=== PATIENT | female | born 1960 | race Caucasian/White ===

== ENCOUNTER 2017-07-04 18:19 | Emergency (ER) | payer BC ==
[~2017-07-04 18:19] MED LIST: AVELOX400 MG OR; AVELOX400 MG PO; CHERATUSSIN OR; CRESTOR10 MG; ENJUVIA1.25 MG; FLUOXETINE20 M2; PREDNISONE10 MG PO; STERAPRED DS10 MG; ZITHROMAX500 MG
== END 2017-07-04 18:35 | disposition left against medical advice (07) | DRG 951 ==
LOC: ED 18:19 → LWOBS 18:35
DX: Z91.19 Patient's noncompliance with other medical treatment and regimen (principal)

== ENCOUNTER 2017-07-17 08:55 | Inpatient (IN) | payer BC ==
[~2017-07-17] VITALS: Ht 157.5 cm; Wt 77.6 kg
--- NOTE | 2017-07-17 09:10 | NUR ---
PATIENT AMBULATED TO ROOM WITH STEADY GAIT AND PHYSICIAN AT BEDSIDE FOR EVAL
--- NOTE | 2017-07-17 09:28 | NUR ---
PT TO CT AFTER 22G STARTED, LAB WORK OBTAINED AND MEDICATED FOR PAIN, SPOUSE REMAINS IN ROOM
[2017-07-17 09:30] LABS: HEMATOCRIT 41.5 % (37.0-47.0); IMMATURE GRANULOCYTES 0.3 % (0.0-1.0); MEAN CELL VOLUME 87.4 fL CALC (80.0-100.0); MEAN CORPUSCULAR HGB 29.5 pG CALC (26.0-32.0); MEAN CORPUSCULAR HGB CONC 33.7 g/L CALC (32.0-36.0); NEUT# 12.8 thou/uL (2.00-7.15); RED BLOOD COUNT 4.75 mill/uL (4.20-5.60); RED CELL DISTRI WIDTH 12.2 % (11.5-15.5)
--- NOTE | 2017-07-17 10:01 | NUR ---
PT STATES MODERATE RELIEF WITH TORADOL, RESTING ON STRETCHER, SPOUSE REMAINS AT BEDSIDE
[2017-07-17 10:16] LABS: ALBUMIN 4.1 g/dL (3.2-5.0); ALKALINE PHOSPHATASE 106 u/l (38-126); AMYLASE 76 u/l (30-110); ANION GAP 15 (6-22 (CALC)); BILIRUBIN, TOTAL 0.6 mg/dL (0.0-1.4); BUN 11 mg/dL (7-17); BUN/CREATININE RATIO 11 (12-20 (CALC)); CALCIUM 9.3 mg/dL (8.4-10.2); CARBON DIOXIDE 28 mmol/l (22-30); CHLORIDE 100 mmol/l (95-108); GFR 58 ML/MIN (>=60 (CALC)); GFR FOR AFR.AMER. > 60 ML/MIN (>=60 (CALC)); GLUCOSE 131 mg/dL (65-105); LIPASE 56 u/l (23-300); POTASSIUM 4.1 mmol/l (3.5-5.1); SGOT/AST 28 u/l (14-36); SGPT/ALT 40 u/l (9-52); SODIUM 139 mmol/l (137-146); TOTAL PROTEIN 7.3 g/dL (6.3-8.2)
--- NOTE | 2017-07-17 10:41 | NUR ---
PT MABULATED TO BATHROOM CONTINENT OF URINE, SEPCIMEN OBTAINED. AMBULATED BACK TO ROOMW ITH STEADY GAIT, AWARE OF PLAMNED ADMISSION.
[2017-07-17 11:05] LABS: URINE BILIRUBIN - DIPSTICK NEGATIVE (NEGATIVE); URINE BLOOD DIPSTICK MODERATE (NEGATIVE); URINE COLOR YELLOW; URINE GLUCOSE - DIPSTICK NEGATIVE (NEGATIVE); URINE KETONE NEGATIVE (NEGATIVE); URINE LEUK ESTERASE NEGATIVE (NEGATIVE); URINE NITRITE - DIPSTICK NEGATIVE (Negative); URINE PROTEIN - DIPSTICK NEGATIVE (NEG-TRACE); URINE SPECIFIC GRAVITY <=1.005; URINE UROBILINOGEN - DIPSTICK 0.2 E.U./dL (0.2)
[2017-07-17 11:06] LABS: URINE CLARITY SL CLOUDY; URINE EPITHELIAL CELLS FEW EPI/hpf (0-FEW)
--- NOTE | 2017-07-17 12:08 | NUR ---
REPORT CALLED TO LORI WHITLOCK ON MED SURG EARLIER ROOM 262 ASSIGNED PT AWARE OF PLANNED ADMISSION, MEDICATED WITH MORPHINE EARLIER WITH GOOD RELIEF SPOUSE REMAINS AT BEDSIDE, BP MUCH IMPROVED 114/70
--- NOTE | 2017-07-17 12:15 | NUR ---
PT ADMITTED TO MED [facility]G ROOM 262 [facility] LORI AND BARRY SINGH AT BEDSIDE
[2017-07-17 12:16] VITALS: BP 140/91
--- NOTE | 2017-07-17 12:16 | NUR ---
PT ARRIVED TO ROOM AT 1216 WITH EMILI RENTERIA. PT ORIENTED TO ROOM AND CALL LIGHT SYSTEM. PT HAS NO COMPLAINTS OF PAIN AT THIS TIME. IV PATENT, NO REDNESS OR INFLAMATION. SAFETY PRECAUTIONS IN PLACE. CALL LIGHT WITHIN REACH.
[2017-07-17 15:23] VITALS: BP 119/72
[2017-07-17 19:00] VITALS: BP 145/85
--- NOTE | 2017-07-17 19:00 | NUR ---
RECEIVED CHANGE OF SHIFT REPORT FRON KAMLESH NOLEN. PATIENT LYING IN BED AND APPEARS NOT TO BE IN ANY APPARENT ACUTE DISTRESS OR DISCOMFORT. WILL CONTINUE TO MONITOR.
--- NOTE | 2017-07-17 19:35 | NUR ---
REPORT GIVEN TO EMILI ROWLEY. NO CHANGE IN PT CONDITION. CALL LIGHT WITHIN REACH.
[2017-07-18] VITALS (7 sets, daily range): BP systolic 124–162; BP diastolic 77–93
--- NOTE | 2017-07-18 | NUR ---
PATIENT RESTING QUIETLY WITH EYES CLOSED AND APPEARS TO BE ASLEEP. RESPIRATION EVEN AND UNLABORED. NO APPARENT ACUTE DISTRESS NOTED.
--- NOTE | 2017-07-18 04:00 | NUR ---
PATIENT'S AWAKE AND REQUESTED PAIN MEDICATION. NO APPARENT ACUTE CHANGES NOTED IN PATIENT'S CONDITION.
[2017-07-18 06:08] LABS: HEMATOCRIT 38.2 % (37.0-47.0); HEMOGLOBIN 12.5 g/dl (12.0-16.0); IMMATURE GRANULOCYTES 0.2 % (0.0-1.0); MEAN CELL VOLUME 90.3 fL CALC (80.0-100.0); MEAN CORPUSCULAR HGB 29.6 pG CALC (26.0-32.0); MEAN CORPUSCULAR HGB CONC 32.7 g/L CALC (32.0-36.0); NEUT# 4.93 thou/uL (2.00-7.15); RED BLOOD COUNT 4.23 mill/uL (4.20-5.60); RED CELL DISTRI WIDTH 12.3 % (11.5-15.5)
[2017-07-18 06:28] LABS: CALCIUM 9.2 mg/dL (8.4-10.2); CREATININE 1.2 mg/dL (0.5-1.0); POTASSIUM 4.1 mmol/l (3.5-5.1)
--- NOTE | 2017-07-18 07:00 | NUR ---
RECIEVED REPORT FROM EMILI ROWLEY. PT AWAKE ON ENTRY, WATCHING TV. IV SITE PATENT, NO REDNESS OR INFLAMATION. SAFETY PRECAUTIONS REINFORCED. WILL CONTINUE TO MONITOR. CALL LIGHT WITHIN REACH.
--- NOTE | 2017-07-18 14:41 | NUR ---
PT OFF FLOOR AT 1441 WITH OR NURSE JOSE MANUEL.
--- NOTE | 2017-07-18 16:50 | NUR ---
PT BACK TO ROOM FROM OR WITH OR NURSE BRENDON. PT AMBULATED TO BED. NO COMPLAINTS OF PAIN FROM PT. PT REORIENTED TO ROOM. CALL LIGHT WITHIN REACH. WILL CONTINUE TO MONITOR.
--- NOTE | 2017-07-18 19:00 | NUR ---
RECEIVED CHANGE OF SHIFT REPORT FROM KAMLESH NOLEN. PATIENT LYING IN BED WITH VISITORS AT BEDSIDE. PT REPORTS UNRELIEVED DISCOMFORT AT THIS TIME. NO APPARENT DISTRESS NOTED. WILL CONTINUE TO MONITOR.
--- NOTE | 2017-07-18 19:00 | NUR ---
REPORT GIVEN TO EMILI ROWLEY. NO ACUTE CHANGES IN PT CONDITION. CALL LIGHT WITHIN REACH.
--- NOTE | 2017-07-18 19:45 | NUR ---
MEDICATED PATIENT WITH 1 MG DILAUDID IV FOR PAIN OF 5 ON 0-10 PAIN SCALE. WILL CONTINUE TO MONITOR.
--- NOTE | 2017-07-19 | NUR ---
PATIENT RESTING QUIETLY AT THIS TIME.
[2017-07-19 04:32] VITALS: BP 194/86
--- NOTE | 2017-07-19 04:41 | NUR ---
NOTIFY DR AGRAWAL OF CHANGE IN PATIENTS CONDITION. BP 194/86. ORDERS RECEIVED.
--- NOTE | 2017-07-19 05:00 | NUR ---
NO APPARENT ACUTE CHANGES NOTED IN PATIENT'S CONDITION.
[2017-07-19 06:39] LABS: HEMATOCRIT 35.9 % (37.0-47.0); HEMOGLOBIN 11.8 g/dl (12.0-16.0); IMMATURE GRANULOCYTES 0.2 % (0.0-1.0); MEAN CELL VOLUME 89.3 fL CALC (80.0-100.0); MEAN CORPUSCULAR HGB 29.4 pG CALC (26.0-32.0); MEAN CORPUSCULAR HGB CONC 32.9 g/L CALC (32.0-36.0); NEUT# 2.93 thou/uL (2.00-7.15); RED BLOOD COUNT 4.02 mill/uL (4.20-5.60); RED CELL DISTRI WIDTH 12.2 % (11.5-15.5)
[2017-07-19 06:58] LABS: BUN 9 mg/dL (7-17); BUN/CREATININE RATIO 11 (12-20 (CALC)); CALCIUM 9.1 mg/dL (8.4-10.2); CARBON DIOXIDE 29 mmol/l (22-30); CHLORIDE 105 mmol/l (95-108); CREATININE 0.8 mg/dL (0.5-1.0); GFR > 60 ML/MIN (>=60 (CALC)); GFR FOR AFR.AMER. > 60 ML/MIN (>=60 (CALC)); GLUCOSE 95 mg/dL (65-105); MAGNESIUM 1.5 mg/dL (1.6-2.3); SODIUM 141 mmol/l (137-146)
[2017-07-19 07:01] LABS: ANION GAP 11 (6-22 (CALC)); POTASSIUM 4.1 mmol/l (3.5-5.1)
--- NOTE | 2017-07-19 07:10 | NUR ---
REPORT RECEIVED FROM EMILI ROWLEY. PT SITTING UPRIGHT IN BED. DENIES PAIN AT THIS TIME. REPORTING OF CONCERNS ENCOURAGED. PLAN OF CARE DISCUSSED. CALL LIGHT REVIEWED AND IN REACH. PT STATES UNDERSTANDING.
[2017-07-19 07:23] VITALS: BP 129/80
[2017-07-19] MEDS ORDERED: BACTRIM DS1 TAB PO (09:15)
--- NOTE | 2017-07-19 11:17 | NUR ---
Discharge instructions given. Patient verbalizes understanding of same. Discharged in stable condition via Wheelchair to Home with family. All belongings sent with pt.
== END 2017-07-19 11:49 | disposition home or self-care (01) | DRG 690 ==
LOC: ED 08:55 → ED-I 10:05 → ED 10:50 → MS2 10:51
PROVIDERS: Emergency Medicine; Nurse Anesthetist, Certified Registered; Nurse Practitioner Family; ADMIT Internal Medicine; ATTEND Internal Medicine
PROC: 0T778DZ Dilation of Left Ureter with Intraluminal Device, Via Natural or Artificial Opening Endoscopic (ICD-10-PCS; principal; 2017-07-18)
PROC: BT1FZZZ Fluoroscopy of Left Kidney, Ureter and Bladder (ICD-10-PCS; 2017-07-18)
PROC: 3E0234Z Introduction of Serum, Toxoid and Vaccine into Muscle, Percutaneous Approach (ICD-10-PCS; 2017-07-19)
DX: N13.6 Pyonephrosis (principal); N17.9 Acute kidney failure, unspecified; N20.0 Calculus of kidney; I16.0 Hypertensive urgency; I10 Essential (primary) hypertension; F32.9 Major depressive disorder, single episode, unspecified; J44.9 Chronic obstructive pulmonary disease, unspecified; E83.42 Hypomagnesemia; Z23 Encounter for immunization; Z87.891 Personal history of nicotine dependence
CPT/HCPCS: Q9967

== ENCOUNTER 2017-08-07 11:41 | Day surgery (SDC) | payer BC ==
[~2017-08-07 11:41] MED LIST changes: +BACTRIM DS1 TAB PO
[2017-08-07] MEDS ORDERED: OMEPRAZOLE20 M1 PO (13:24)
[2017-08-07 14:47] VITALS: BP 145/74
[2017-08-07] MEDS ORDERED: PERCOCET 5/325M1 TAB PO (14:51)
[2017-08-07] MEDS ORDERED: TAMSULOSIN0.4 MG PO (14:51)
== END 2017-08-07 15:15 | disposition home or self-care (01) | DRG 692 ==
LOC: ORM 11:41
PROVIDERS: ATTEND Urology
PROC: 0TF7XZZ Fragmentation in Left Ureter, External Approach (ICD-10-PCS; principal; 2017-08-07)
DX: N20.2 Calculus of kidney with calculus of ureter (principal); F32.9 Major depressive disorder, single episode, unspecified; I10 Essential (primary) hypertension; Z87.891 Personal history of nicotine dependence

== ENCOUNTER 2017-08-29 06:41 | Day surgery (SDC) | payer BC ==
[~2017-08-29] VITALS: Ht 157.5 cm; Wt 74.8 kg
[~2017-08-29 06:41] MED LIST changes: +OMEPRAZOLE20 M1 PO; +PERCOCET 5/325M1 TAB PO; +TAMSULOSIN0.4 MG PO
[2017-08-29] MEDS ORDERED: TAMSULOSIN0.4 MG PO (09:45)
[2017-08-29] MEDS ORDERED: PERCOCET 5/325M1 TAB PO (09:45)
[2017-08-29 10:24] VITALS: BP 142/65
== END 2017-08-29 10:10 | disposition home or self-care (01) | DRG 692 ==
LOC: ORM 06:41
PROVIDERS: ATTEND Urology
PROC: 0TF3XZZ Fragmentation in Right Kidney Pelvis, External Approach (ICD-10-PCS; principal; 2017-08-29)
PROC: 0T768DZ Dilation of Right Ureter with Intraluminal Device, Via Natural or Artificial Opening Endoscopic (ICD-10-PCS; 2017-08-29)
PROC: 0TP98DZ Removal of Intraluminal Device from Ureter, Via Natural or Artificial Opening Endoscopic (ICD-10-PCS; 2017-08-29)
DX: N20.0 Calculus of kidney (principal); Z87.442 Personal history of urinary calculi
CPT/HCPCS: J1956; Q9967

== ENCOUNTER 2023-11-01 16:52 | Emergency (ER) | payer OTHER ==
[2023-11-01] VITALS (11 sets, daily range): BP systolic 123–169; BP diastolic 80–109
[~2023-11-01] VITALS: Ht 157.5 cm; Wt 95.9 kg
[2023-11-01] MEDS ORDERED: SODIUM CHLORIDE 1,000 ML BTL IR ONE (16:59)
[2023-11-01] MEDS ORDERED: cefTRIAXone SODIUM 2 GM in SODIUM CHLORIDE 0.9% 100 ML IV ONE (17:00)
[2023-11-01] MEDS ORDERED: Diph, Acellular Pertussis, Tet 0.5 ML/VIAL (Tdap) SDV IM ONE (17:00)
[2023-11-01] MEDS ORDERED: ONDANSETRON HCl 4 MG/2 ML SDV IV ONE (17:10)
[2023-11-01] MEDS ORDERED: MORPHINE SULFATE 4 MG/ML VIAL IV ONE ×2 (17:10→18:10)
[2023-11-01 17:15] LABS: BASO% 0.2 % (0-3); EOS% 0.5 % (0-8); HEMATOCRIT 40.3 % (37.0-47.0); HEMOGLOBIN 12.7 g/dl (12.0-16.0); IMMATURE GRANULOCYTES 0.2 % (0.0-5.0); LYMPH% 9.4 % (15-41); MEAN CELL VOLUME 91.2 fL CALC (80.0-100.0); MEAN CORPUSCULAR HGB 28.7 pG CALC (26.0-32.0); MEAN CORPUSCULAR HGB CONC 31.5 g/dL CAL (32.0-36.0); MONO% 4.6 % (2-13); NEUT# 13.72 thou/uL (2.00-7.15); NEUT% 85.1 % (42-76); RED BLOOD COUNT 4.42 mill/uL (4.20-5.60); RED CELL DISTRI WIDTH 12.7 % (11.5-15.5)
[2023-11-01 17:33] LABS: ALBUMIN 3.9 g/dL (3.2-5.0); ALKALINE PHOSPHATASE 85 u/l (38-126); BUN 15 mg/dL (8-23); BUN/CREATININE RATIO 20 (12-20 (CALC)); CHLORIDE 102 mmol/l (95-108); CREATININE 0.8 mg/dL (0.5-1.0); GFR FOR AFR.AMER. > 60 ML/MIN (>=60 (CALC)); GFR OTHER RACES > 60 ML/MIN (>=60 (CALC)); SGOT/AST 43 u/l (9-36); SODIUM 135 mmol/l (137-146); TOTAL PROTEIN 6.2 g/dL (6.3-8.2)
[2023-11-01 17:34] LABS: ANION GAP 12 (6-22 (CALC)); BILIRUBIN, TOTAL 0.5 mg/dL (0.02-1.3); CARBON DIOXIDE 25 mmol/l (22-30); POTASSIUM 4.2 mmol/l (3.5-5.1)
[2023-11-01] MEDS ORDERED: HYDROmorphone HCL 2 MG/AMP IV ONE (19:00)
== END 2023-11-01 19:35 | DRG 921 ==
LOC: ED 16:52
PROVIDERS: Family Medicine
DX: T81.31XA Disruption of external operation (surgical) wound, not elsewhere classified, initial encounter (principal); Y83.1 Surgical operation with implant of artificial internal device as the cause of abnormal reaction of the patient, or of later complication, without mention of misadventure at the time of the procedure; Z96.652 Presence of left artificial knee joint; J44.9 Chronic obstructive pulmonary disease, unspecified; Z87.891 Personal history of nicotine dependence

== ENCOUNTER 2024-06-01 10:34 | Observation (INO) | payer OTHER ==
[~2024-06-01] VITALS: Ht 157.5 cm; Wt 74.0 kg
[2024-06-01] VITALS (31 sets, daily range): BP systolic 95–148; BP diastolic 47–118
[2024-06-01] MEDS ORDERED: AMLODIPINE BESYL5 MG PO (10:46)
[2024-06-01] MEDS ORDERED: WELLBUTRIN XL300 MG PO (10:46)
[2024-06-01] MEDS ORDERED: DIOVAN160 MG PO (10:47)
[2024-06-01] MEDS ORDERED: PRAVASTATIN40 MG PO (10:47)
[2024-06-01] MEDS ORDERED: ESTRACE1 MG PO (10:48)
[2024-06-01] MEDS ORDERED: B-121000 MC1 PO (10:48)
[2024-06-01] MEDS ORDERED: OZEMPIC2 MG SC (10:49)
[2024-06-01] MEDS ORDERED: SODIUM CHLORIDE 0.9% 1,000 ML IV STA (11:28)
[2024-06-01] MEDS ORDERED: KETOROLAC TROMETHAMINE 30 MG/ML SDV IV STA (11:28)
[2024-06-01] MEDS ORDERED: ONDANSETRON HCl 4 MG/2 ML SDV IV STA (11:28)
[2024-06-01] MEDS ORDERED: MORPHINE SULFATE 4 MG/ML VIAL IV STA (11:28)
[2024-06-01 12:02] LABS: ALBUMIN 4.2 g/dL (3.2-5.0); BASO% 0.2 % (0-3); BILIRUBIN, TOTAL 0.6 mg/dL (0.02-1.3); CREATININE 0.9 mg/dL (0.5-1.0); EOS% 2.1 % (0-8); IMMATURE GRANULOCYTES 0.2 % (0.0-5.0); LYMPH% 25.5 % (15-41); MEAN CELL VOLUME 88.9 fL CALC (80.0-100.0); MEAN CORPUSCULAR HGB 29.3 pG CALC (26.0-32.0); MONO% 5.4 % (2-13); NEUT# 7.09 thou/uL (2.00-7.15); NEUT% 66.6 % (42-76); POTASSIUM 3.8 mmol/l (3.5-5.1); RED BLOOD COUNT 5.32 mill/uL (4.20-5.60); RED CELL DISTRI WIDTH 12.8 % (11.5-15.5)
[2024-06-01 12:05] LABS: HEMATOCRIT 47.3 % (37.0-47.0); HEMOGLOBIN 15.6 g/dl (12.0-16.0)
[2024-06-01 13:31] LABS: URINE BLOOD DIPSTICK Negative (NEGATIVE); URINE GLUCOSE - DIPSTICK Negative (NEGATIVE); URINE KETONE Negative (NEGATIVE); URINE LEUK ESTERASE Negative (NEGATIVE); URINE NITRITE - DIPSTICK Negative (Negative); URINE PH 6.5 (4.5-8.0); URINE PROTEIN - DIPSTICK Trace mg/dL (NEG-TRACE); URINE UROBILINOGEN - DIPSTICK 0.2 E.U./dL (0.2)
[2024-06-01 13:34] LABS: URINE COLOR Yellow
[2024-06-01] MEDS ORDERED: SODIUM CHLORIDE 0.9% 0 ML IV ONE (18:17)
[2024-06-01] MEDS ORDERED: ceFAZolin Sodium 2 GM/VIAL SDV ONE (19:27)
[2024-06-01] MEDS ORDERED: SODIUM CHLORIDE 0.9% 100 ML IV ONE (19:28)
[2024-06-01] MEDS ORDERED: SIMETHICONE 20 MG/0.3 ML PO PRN (20:05)
[2024-06-01] MEDS ORDERED: SODIUM CHLORIDE 0.9% 1,000 ML IV PRN (20:05)
[2024-06-01] MEDS ORDERED: ONDANSETRON HCl 4 MG/2 ML SDV IV PRN (20:05)
[2024-06-01] MEDS ORDERED: HYDROmorphone HCL 2 MG/AMP IV PRN (20:05)
[2024-06-01] MEDS ORDERED: ACETAMINOPHEN 325 MG/TAB PO PRN (20:05)
[2024-06-02] VITALS (8 sets, daily range): BP systolic 104–147; BP diastolic 53–79
[2024-06-02] MEDS ORDERED: KETOROLAC TROMETHAMINE 15 MG/ML SDV IV SCH
[2024-06-02] MEDS ORDERED: FAMOTIDINE 10MG/ML 2ML SDV IV ONE (07:30)
[2024-06-02] MEDS ORDERED: STERILE WATER FOR IRRIGATION 1,000 ML BTL IR ONE (07:39)
[2024-06-02] MEDS ORDERED: SODIUM CHLORIDE 1,000 ML BTL IR ONE (07:39)
[2024-06-02] MEDS ORDERED: LIDOcaine HCl 1% (Local Anesth.) 20 ML VIAL ONE (07:39)
[2024-06-02] MEDS ORDERED: Iopamidol 300 (Isovue) 61% 100ML SDV IV ONE (07:41)
[2024-06-02] MEDS ORDERED: GLUCAGON HCL (Rdna) 1 MG VIAL ONE (07:41)
[2024-06-02] MEDS ORDERED: oxyCODONE 5MG/ ACETAMINOPHEN 325MG TAB PO PRN (08:10)
[2024-06-02] MEDS ORDERED: PERCOCET 5/325M1 TAB PO (08:56)
[2024-06-02] MEDS ORDERED: SUGAMMADEX SODIUM 200 MG/2 ML SDV IV ONE (16:27)
[2024-06-02] MEDS ORDERED: SODIUM CHLORIDE 0.9% 1,000 ML BAG IV ONE (16:27)
[2024-06-02] MEDS ORDERED: ONDANSETRON HCl 4 MG/2 ML SDV IV ONE (16:38)
[2024-06-02] MEDS ORDERED: ROCURONIUM BROMIDE 10 MG/ML 5ML VIAL IV ONE (16:38)
[2024-06-02] MEDS ORDERED: ACETAMINOPHEN 1,000 MG/100 ML VIAL IV ONE (16:38)
[2024-06-02] MEDS ORDERED: DEXAMETHASONE SODIUM PHOSPHATE PF 10 MG/ML SDV IV ONE (16:38)
[2024-06-02] MEDS ORDERED: SUCCINYLCHOLINE CHLORIDE 20 MG/ML 10ML VIAL IV ONE (16:38)
[2024-06-02] MEDS ORDERED: LIDOCAINE HCL 2% 2ML SDV IV ONE (16:38)
[2024-06-02] MEDS ORDERED: PROPOFOL 200 MG/20 ML VIAL IV ONE (16:38)
== END 2024-06-02 13:05 | disposition home or self-care (01) | DRG 419 ==
LOC: ED 10:34 → ED-I 13:50 → ED 13:52 → MS2 13:53
PROVIDERS: Emergency Medicine; ADMIT Surgery; ATTEND Surgery
PROC: 0FT44ZZ Resection of Gallbladder, Percutaneous Endoscopic Approach (ICD-10-PCS; principal; 2024-06-02)
DX: K80.10 Calculus of gallbladder with chronic cholecystitis without obstruction (principal); I10 Essential (primary) hypertension; F32.A Depression, unspecified; K21.9 Gastro-esophageal reflux disease without esophagitis; Z79.85 Long-term (current) use of injectable non-insulin antidiabetic drugs; Z87.891 Personal history of nicotine dependence; Z20.822 Contact with and (suspected) exposure to COVID-19
CPT/HCPCS: J0131; J0690; J1100; J1610; Q9966; Q9967